=== PATIENT | female | born 1960 | race Caucasian/White ===

== ENCOUNTER → 2017-03-19 | Outpatient (CLI) | payer OTHER ==
[2017-03-19 16:57] LABS: BLOOD UREA NITROGEN 16 mg/dl (7-18); CALCIUM 8.6 mg/dl (8.5-10.1); CARBON DIOXIDE 28 mmol/L (21-32); CREATININE 0.81 mg/dl (0.60-1.20); GLUCOSE 97 mg/dl (70-99); SODIUM 142 mmol/L (136-145); URIC ACID 4.9 mg/dl (2.6-7.2)
[2017-03-19 17:07] LABS: FOLLICLE STIMULAT HORMONE 52.29 IU/L; LUTEINIZING HORMONE 41.82 IU/L; THYROXINE (T4) 6.5 mcg/dl (4.5-10.9)
== END | disposition home or self-care (01) ==
LOC: C.LABPBG 14:17
PROVIDERS: ATTEND Family Medicine
DX: R63.5 Abnormal weight gain (principal); E66.9 Obesity, unspecified; M79.89 Other specified soft tissue disorders

== ENCOUNTER → 2017-04-12 | Outpatient (CLI) | payer OTHER ==
[2017-04-12 18:30] LABS: ALBUMIN 3.8 gm/dl (3.4-5.0); ALT/SGPT 26 U/L (12-78); BLOOD UREA NITROGEN 18 mg/dl (7-18); CALCIUM 8.8 mg/dl (8.5-10.1); CARBON DIOXIDE 31 mmol/L (21-32); CHOLESTEROL 216 mg/dl (0-200); CREATININE 0.78 mg/dl (0.60-1.20); GLUCOSE,FASTING 88 mg/dl (70-99); POTASSIUM 4.2 mmol/L (3.5-5.1); SODIUM 142 mmol/L (136-145)
[2017-04-12 18:33] LABS: ALKALINE PHOSPHATASE 92 U/L (45-117); AST/SGOT 19 U/L (15-37); LDL CHOLESTEROL CALCULATED 129 mg/dl
== END | disposition home or self-care (01) ==
LOC: C.LABPBG 12:44
PROVIDERS: ATTEND Physician Assistant
DX: Z00.00 Encounter for general adult medical examination without abnormal findings (principal)